=== PATIENT | male | born 1950 | race Caucasian/White ===

== ENCOUNTER → 2019-11-23 | Outpatient (CLI) | payer MEDICARE ==
--- NOTE | 2019-11-24 08:38 | ECHOS ---
STRESS ECHOCARDIOGRAM LUMASON: Vial INDICATIONS: Dyspnea. MEDICATIONS: BASELINE HEART RATE: 83 BASELINE BLOOD PRESSURE: 186/67 MAXIMUM HEART RATE: 143 MAXIMUM BLOOD PRESSURE: 211/81 85% MPHR: 129 100% MPHR: 152 METS: 4.4 MAXIMUM STAGE REACHED: 1 TOTAL EXERCISE TIME: 3:00 CLINICAL INFORMATION: Baseline EKG shows sinus rhythm, normal axis, normal intervals. Patient exercised on Jay protocol for a total of 3 minutes achieving 4 METS, 85% of predicted maximal heart rate without chest pain or diagnostic ST-segment depression. Baseline echo shows normal left ventricular size, wall motion, systolic function. Postexercise there is normal hyperdynamic response of all segments of myocardium noted. CONCLUSION: 1. Poor exercise tolerance. 2. Negative stress test by EKG criteria. 3. Negative stress echo. MMODL / IJN: [id number] /
== END | disposition home or self-care (01) ==
LOC: RADNMMAIN 08:49
PROVIDERS: ATTEND Family Medicine
DX: R06.00 Dyspnea, unspecified (principal)
CPT/HCPCS: 93351